=== PATIENT | female | born 1965 | race Caucasian/White ===

== ENCOUNTER 2018-05-15 20:33 | Emergency (ER) | payer MEDICAID ==
[2018-05-15 20:54] VITALS: RESP 20
--- NOTE | 2018-05-15 22:11 | C.PDOC ---
History Of Present Illness 52 y/o female, with PMHx of diabetes and anxiety disorder, presents to the ED complaining of sore throat, ear ache and unproductive cough. The patient admits that she is visiting from [place]. She states she ran out of regular and test strips. The patient also claims to not be able to monitor or administer medication because of decreased vision. She reports steadily declining vision in which she does not follow up with a specialist for. Time Seen by Provider: 05/15/18 20:57 Chief Complaint (Nursing): High Blood Sugar History Per: Patient History/Exam Limitations: no limitations Onset/Duration Of Symptoms: Days Current Symptoms Are (Timing): Still Present Associated Symptoms: Sore Throat, Cough Recent travel outside of the [place]: No Past Medical History Reviewed: Historical Data, Nursing Documentation, Vital Signs Vital Signs: Last Vital Signs Temp 97.6 F 05/15/18 20:49 Pulse 110 H 05/15/18 20:49 Resp 20 05/15/18 20:49 BP 152/64 H 05/15/18 20:49 Pulse Ox 100 05/15/18 20:49 - Medical History PMH: Anxiety, Diabetes (mellitus type 2) Surgical History: No Surg Hx Family History: States: Unknown Family Hx - Social History Hx Alcohol Use: No Hx Substance Use: No Review Of Systems Except As Marked, All Systems Reviewed And Found Negative. Constitutional: Negative for: Fever ENT: Positive for: Ear Pain (ache), Other (sore throat) Respiratory: Positive for: Cough (unproductive) Physical Exam - Physical Exam Appears: No Acute Distress, Other (Older than stated age) Skin: Warm, Dry Head: Atraumatic, Normacephalic Eye(s): bilateral: PERRL, EOMI Oral Mucosa: Dry Throat: Erythema (mild), Other (dry oral pharynx) Neck: Supple Chest: Symmetrical Cardiovascular: Rhythm Regular, No Murmur Respiratory: No Rales, No Rhonchi, No Wheezing Gastrointestinal/Abdominal: Soft, No Tenderness, No Distention, Other (polyuria and polydipsia) Back: No CVA Tenderness Extremity: No Calf Tenderness, No Swelling Neurological/Psych: Oriented x3, Normal Speech ED Course And Treatment O2 Sat by Pulse Oximetry: 100 (RA) Pulse Ox Interpretation: Normal Medical Decision Making Medical Decision Making: viral syndrome, sore throat no throat infection no submandibular AMANDA DM: ran out of test strips, 70/30 and regular insulin refill reg insulin 8 IV given for glu 417 pt refused IVF's extensive bedside discussion and glucose monitoring and administration with patient and son Disposition Doctor Will See Patient In The: Office Counseled Patient/Family Regarding: Studies Performed, Diagnosis - Disposition Referrals: [facility] [Outside] [facility] [Outside] [facility] [Outside] [employer] [facility] [Outside] Disposition: HOME/ ROUTINE Disposition Time: 22:10 Condition: GOOD Additional Instructions: check your finger sticks three times a day PRIOR to meals and write in the little booklet Bring the booklet to your next Diabetes Doctor visit. Insulin 70/30 SQ WITH three meals a day, 10-25 units depending on the carbohydrate content of the meal Insulin Regular 2-12 units WITH three meals a day- following the Sliding Scale CONSIDER Levamir/glargine insulin @ hour of sleep (QHS) to be added to your diabetes regimen in 1-2 months Drink plenty of water/fluids- you will be very dry if your glucose is over 280 Viral Syndrome: OTC cold medicine Curb your smoking as much as able. Prescriptions: Insulin Human Regular [HumuLIN R] 100 units SC TID #10 ml Insulin Lispro Mix 75/25 [HumaLOG Mix 75/25] 10 ml SC TID PRN #1 bottle PRN Reason: diabetes Lancets/Blood Glucose Strips [Fora [id number] Strp-Lnct] 1 each MC BID #60 combo..pkg Instructions: Hyperglycemia, Adult (DC), Blood Glucose Monitoring, Viral Syndrome (DC) Forms: [facility] ([place]) - Clinical Impression Clinical Impression: Hyperglycemia, Viral syndrome - Scribe Statement The provider has reviewed the documentation as recorded by the Scribe Provider Attestation: Apoorva Floyd All medical record entries made by the Scribe were at my direction and personally dictated by me. I have reviewed the chart and agree that the record accurately reflects my personal performance of the history, physical exam, medical decision making, and the department course for this patient. I have also personally directed, reviewed, and agree with the discharge instructions and disposition.
[2018-05-15] MEDS ORDERED: (Novolin R) Insulin Human Regular 100 units/ml vial IVP ONE (22:13)
[2018-05-15] MEDS ORDERED: (Novolin R) Insulin Human Regular 100 units/ml vial ONE (22:13)
[2018-05-15] MEDS ORDERED: guaiFENesin 100 mg/5 ml Syrup UD PO STA (22:20)
[2018-05-15] MEDS ORDERED: guaiFENesin 100 mg/5 ml Syrup UD ONE (22:26)
[2018-05-15 22:33] VITALS: BP 107/64; PULSE 90; TEMP 98.6
[2018-05-16 03:47] VITALS: O2SAT 100
== END 2018-05-15 22:44 | disposition home or self-care (01) ==
LOC: C.ER 20:33
DX: B34.9 Viral infection, unspecified (principal); E11.65 Type 2 diabetes mellitus with hyperglycemia